=== PATIENT | female | born 1995 | race Caucasian/White ===

== ENCOUNTER 2017-01-28 08:09 | Inpatient (IN) | payer BC, OTHER ==
[~2017-01-28] VITALS: Ht 172.7 cm; Wt 74.8 kg
[2017-01-28 05:44] VITALS: BP 113/82
--- NOTE | 2017-01-28 11:50 | NUR ---
INTAKE ASSESSMENT Patient is 21yo female patient presented for admission for supervised withdrawal from opiates, meth and heroine. Vital signs: 109/68, HR 113, R 18, 02 sat 100% RA, pain 7/10 (body aches). Patient denies any SOB and chest pain. Patient reports current symptoms such as lightheadedness, headache, nausea (but no vomiting), diarrhea (last BM 01/28/17), backache (01/25), mild tremors noted. Patient denies history of seizure. She reports history of fall within the last 2-3 months. Explained to patient (i.e q4h vital, medication handling including narcotics, disposal of any contraband. Patient has home meds. Patient's history of treatment was at [facility] to [facility] in [place], [place] (11/17/16-12/14/16). Patient appears to be stable to proceed with her admission to [facility] for further care.
[2017-01-28] MEDS ORDERED: LOPERAMIDE HCL 2 MG CAPSULE PO PRN ×2 (12:00)
[2017-01-28] MEDS ORDERED: BUPRENORPHINE HCL 2 MG TAB.SUBL SL PRN (12:00)
[2017-01-28] MEDS ORDERED: ACETAMINOPHEN 325 MG TABLET PO PRN (12:00)
[2017-01-28] MEDS ORDERED: MAG HYDROX/AL HYDROX/SIMETH 30 ML LIQUID UDC PO PRN (12:00)
[2017-01-28] MEDS ORDERED: LORAZEPAM 2 MG/1 ML VIAL IM PRN (12:00)
[2017-01-28] MEDS ORDERED: ONDANSETRON ODT 4 MG TAB.RAPDIS SL PRN (12:00)
[2017-01-28] MEDS ORDERED: ONDANSETRON 4 MG/2 ML VIAL IM PRN (12:00)
[2017-01-28] MEDS ORDERED: MAGNESIUM HYDROXIDE 30 ML LIQUID UDC PO PRN (12:00)
[2017-01-28] MEDS ORDERED: LORAZEPAM 1 MG TABLET PO PRN ×2 (12:00)
[2017-01-28] MEDS ORDERED: DICYCLOMINE HCL 20 MG TABLET PO PRN (12:00)
[2017-01-28] MEDS ORDERED: diphenhydrAMINE 50 MG CAPSULE PO PRN (12:00)
[2017-01-28] MEDS ORDERED: MIRALAX 17 GM POWD.PACK PO PRN (12:00)
[2017-01-28 13:17] LABS: *AMPHETAMINE, URINE NEGATIVE (NEGATIVE); *BARBITURATE, URINE NEGATIVE (NEGATIVE); *CANNABINOID, URINE NEGATIVE (NEGATIVE); *COCCAINE, URINE NEGATIVE (NEGATIVE); *OPIATE, URINE NEGATIVE (NEGATIVE); *PHENCYCLIDINE SCREEN,URINE NEGATIVE (NEGATIVE)
[2017-01-28 13:52] LABS: *URINE HCG, QUAL NEGATIVE (NEGATIVE)
[2017-01-28] MEDS: IBUPROFEN 600 MG TABLET PO PRN ×2 (14:25→22:57)
[2017-01-28] MEDS: METHOCARBAMOL 750 MG TABLET PO PRN ×2 (14:25→22:57)
--- NOTE | 2017-01-28 14:25 | NUR ---
PRN METHOCARBAMOL, IBUPROFEN AND LOPERAMIDE Patient complains of body aches 8/10 and diarrhea. PRN methocarbamol, ibuprofen and loperamide given. Will continue to monitor patient.
--- NOTE | 2017-01-28 14:30 | NUR ---
ADMISSION NOTE Patient is 21yo female admitted for supervised heroin and alprazolam withdrawal. Alert and oriented X4, full code,with NKA. Patient reports pain 8/10 body aches. Denies SOB and chest pain, has R knee abrasion, photo taken. Patient has steady gait. Patient denies any medical history. No history of seizure. History of falls. Patient received PRN loperamide for diarrhea. Denies suicidal and homicidal ideation. COW on admission = 12, complains of , lightheadedness, back pain, mild tremors, and diarrhea. Substance use history per patient report: 1) Heroin - pt. reports last use was 01/24/17, used 1 g daily for 3 weeks, started 2 years ago 2) Xanax - pt. reports last use was 01/27/17, use d 20mg daily for past 2 weeks, started 5 years ago 3) Opiates - last use was 01/24/17, used 15 grams for 1.5 months, started at age 17 4) Meth - last use was 01/21/17, used 1/5g for 1 day, sporadic use, started 4 months ago. Rehab history: [facility] in [place], [place] Addendum: 01/29/17 at 1011 by CATRINA RAND RN Patient was in [facility] for 2 days two days [facility] to [facility]. MRSA swab performed.
[2017-01-28] MEDS: GABAPENTIN 300 MG CAPSULE PO SCH ×2 (15:17→20:45)
[2017-01-28] MEDS: LORAZEPAM 1 MG TABLET PO SCH ×3 (15:18→20:45)
[2017-01-28] MEDS: BUPRENORPHINE HCL 2 MG TAB.SUBL SL SCH ×3 (15:18→20:47)
--- NOTE | 2017-01-28 15:25 | NUR ---
REASSESSMENT METHOCARBAMOL, IBUPROFEN AND LOPERAMIDE Patient reports pain decreased to 5/10 and diarrhea resolved at this time.
[2017-01-28 15:57] LABS: BASOPHILS # (AUTO) 0.1 K/uL (0.0-8.0); BASOPHILS % (AUTO) 0.8 % (0.0-2.0); EOSINOPHILS # (AUTO) 0.2 K/uL (0.0-0.7); EOSINOPHILS % (AUTO) 1.5 % (0.0-7.0); HEMATOCRIT 43.8 % (37-47); HEMOGLOBIN 14.8 G/DL (12.0-16.0); LYMPHOCYTES # (AUTO) 4.5 K/UL (0.8-4.8); LYMPHOCYTES % (AUTO) 41.8 % (20.5-51.5); MEAN CORPUSCULAR HEMOGLOBIN 30.3 UUG (27.0-31.0); MEAN CORPUSCULAR HGB CONC 34 g/dL (32.0-37.0); MEAN CORPUSCULAR VOLUME 89.5 FL (81.0-99.0); MONOCYTES # (AUTO) 0.9 K/UL (0.1-1.30); MONOCYTES % (AUTO) 8.3 % (0.0-11.0); NEUTROPHILS % (AUTO) 47.6 % (38.5-71.5); PLATELET COUNT (AUTO) 288 K/UL (150-450); RED BLOOD CELL COUNT(AUTO) 4.89 MIL/UL (4.2-5.4); WHITE BLOOD COUNT (AUTO) 10.7 K/UL (4.0-11.2)
[2017-01-28 16:19] LABS: ETHANOL < 3 MG/DL (0-0)
[2017-01-28 16:25] LABS: ALANINE AMINOTRANSFERASE 19 U/L (14-59); ALKALINE PHOSPHATASE 54 U/L (50-136); ASPARTATE AMINOTRANSFERASE 15 U/L (15-37); BILIRUBIN,TOTAL 0.2 mg/dL (0.2-1.0); CARBON DIOXIDE 28 mmol/L (21-32); CHLORIDE 106 mmol/L (98-107); CREATININE 0.8 mg/dL (0.6-1.3); GLUCOSE 90 mg/dL (74-106); POTASSIUM 3.9 mmol/L (3.5-5.1); TOTAL PROTEIN, SERUM 7.6 g/dL (6.4-8.2); UREA NITROGEN, BLOOD 11 mg/dL (7-18)
[2017-01-28 16:50] LABS: THYROID STIMULATING HORMONE 0.209 mIU/mL (0.358-3.740)
--- NOTE | 2017-01-28 17:52 | NUR ---
MD communication Pt's mother called, stated "My daughter abuses her seroquel, she runs out of her prescription within a week of having it. She acts crazy and super tired, I think she is allergic to it". Dr English notified. NNO at this time. Pt is ok to continue to her HS dose seroquel.
--- NOTE | 2017-01-28 18:54 | NUR ---
END OF SHIFT Patient is 21yo female admitted for supervised heroin and alprazolam withdrawal. Alert and oriented X4, full code,with NKA. Patient reports pain 8/10 body aches. Denies SOB and chest pain, has R knee abrasion, photo taken. Patient has steady gait. Patient denies any medical history. No history of seizure. History of falls. Patient received PRN loperamide for diarrhea. Denies suicidal and homicidal ideation. COW on admission = 12. CIWA on admission: 12. Complains of , lightheadedness, back pain, mild tremors, and diarrhea. Patient started her 5-day Subutex and 5-day Ativan taper today. Most recent COWS: 8 and CIWA 10. Patient received PRN methocarbamol, ibuprofen and loperamide. Compliant with routine meds during this shift. Patient tolerating meals without n/v. director of adult epilepsyeducation technician will continue to monitor patient.
--- NOTE | 2017-01-28 20:00 | NUR ---
START OF SHIFT NOTE Pt is a 21 y/o female admitted for Heroin, Xanax, Hydrocodone, and Meth dependence and use. Pt has NKA but reported a PMH of birthmark biopsy and a fall 2 months ago. Per day shift nurse pt was placed on a 5 day Subutex and Ativan taper ( day 1) and is tolerating medication well, with no s/e or a/r reported. Pt received Ibuprofen 600 mg PO PRN and Robaxin 750 mg PO PRN during the day shift for back pain. Last COW: 8 and CIWA: 10 (1600). At this time pt is in her room watching television getting ready for a smoke break. Pt is friendly and cooperative. Pt's skin is dry and intact. No tremors present. PERRLA noted. Pt's breathing is even and unlabored. Pt reported "Later before I go to bed can I have more of what took earlier for my back? Im okay for now." Pt was encouraged to notify staff of any changes in condition or of any concerns. Pt verbalized an understanding. All safety measures in place. Will continue to monitor.
[2017-01-28] MEDS: QUETIAPINE FUMARATE 200 MG TABLET PO SCH (20:45)
--- NOTE | 2017-01-28 22:57 | NUR ---
ROBAXIN AND IBUPROFEN PRN ADMINISTRATION Pts stated My back is sore and aching. Its like a 12/26. "Can I have that Robaxin and Ibuprofen now?" Robaxin 750 mg PO PRN and Ibuprofen 600 mg PO PRN was given. Pt was encouraged to notify staff of any changes in condition or of any concerns. Pt verbalized an understanding. All safety measures in place. All safety measures in place. Will monitor for effectiveness.
--- NOTE | 2017-01-28 23:57 | NUR ---
ROBAXIN AND IBUPROFEN PRN REASSESSMENT Pt stated "My back feels better. The pain is like 3/10 right now, but its bearable." PRNS effective. All safety measures in place. Will continue to monitor.
--- NOTE | 2017-01-29 04:00 | NUR ---
VITAL SIGNS REFUSED / COW AND CIWA DEFERRED Pt refused to have vitals taken at this time. Pt was encouraged x 3 with risks and benefits explained, but the pt still declined. COW and CIWA assessment deferred until pt is awake. All safety measures in place. Will continue to monitor. Addendum: 01/29/17 at 0550 by JULIAN ORTEGA LVN Amended: Links added.
[2017-01-29 05:06] LABS: HEPATITIS B SURFACE AG Negative (Negative)
--- NOTE | 2017-01-29 06:14 | NUR ---
END OF SHIFT NOTE/HAND OFF NOTE Pt is a 21 y/o female admitted for Heroin, Xanax, Hydrocodone, and Meth dependence and use. Pt has NKA but reported a PMH of birthmark biopsy and a fall 2 months ago. Pt continues on a 5 day Subutex and Ativan taper ( day 2) and is tolerating medication well, with no s/e or a/r reported. Pt received Ibuprofen 600 mg PO PRN and Robaxin 750 mg PO PRN during the shift for back pain. Last COW: 2 and CIWA: 1 (0000). Pt slept for a total of 7 hours. No changes in condition. All safety measures in place. Endorsed to nurse C.F to ensure monitoring is continued.
[2017-01-29 08:00] VITALS: BP 115/80
[2017-01-29] MEDS: GABAPENTIN 300 MG CAPSULE PO SCH ×3 (08:32→20:44)
[2017-01-29] MEDS: IBUPROFEN 600 MG TABLET PO PRN ×2 (08:32→14:57)
[2017-01-29] MEDS: SERTRALINE HCL 50 MG TABLET PO SCH (08:32)
[2017-01-29] MEDS: METHOCARBAMOL 750 MG TABLET PO PRN ×2 (08:32→17:14)
[2017-01-29] MEDS: MULTIVITAMINS,THERAPEUTIC TABLET PO SCH (08:33)
[2017-01-29] MEDS: LORAZEPAM 1 MG TABLET PO SCH ×3 (08:33→20:44)
[2017-01-29] MEDS: BUPRENORPHINE HCL 2 MG TAB.SUBL SL SCH ×3 (08:33→20:46)
--- NOTE | 2017-01-29 09:00 | NUR ---
START OF SHIFT Patient is 21yo female admitted for supervised heroin and alprazolam withdrawal. Alert and oriented X4, full code,with NKA. On assessment this AM: CIWA: 5 and COWS: 4. Denies SOB, chest pain. Vitals signs: 115/80, HR 119, recheck 115, RR18, 98% 02 sat RA, T 98.1, 7/10 pain (recheck HR 115). Reports lightheadedness and feelings of band around her head, mild anxiety, mild tremors and backache. On day 2 of 5-day Subutex and 5-day Ativan taper (started 01/28/17 ). Med compliant with AM meds. PRN robaxin and ibuprofen given. Encouraged patient to hydrate with fluids. Patient was encouraged to attend group meetings today. Patient goes out with escort for smoke break. Will continue to monitor patient.
[2017-01-29] MEDS ORDERED: diphenhydrAMINE 50 MG CAPSULE PO PRN (10:30)
--- NOTE | 2017-01-29 11:51 | NUR ---
TB SKIN TEST REFUSAL Patient refused TB skin test, placed chest x-ray order per patient's request.
[2017-01-29 12:00] VITALS: BP 120/73
[2017-01-29] MEDS: HYDROXYZINE PAMOATE 25 MG CAPSULE PO PRN ×2 (12:59→22:59)
--- NOTE | 2017-01-29 12:59 | NUR ---
PRN TYLENOL AND VISTARIL Patient complains of headache 7/10 and anxiety. PRN Tylenol and vistaril given. Will continue to monitor patient.
--- NOTE | 2017-01-29 13:59 | NUR ---
DEFER REASSESSMENT (TYLENOL AND VISTARIL) Patient just escorted out to patio for smoke break. Will re-evaluate patient when she returns to her room.
[2017-01-29] MEDS ORDERED: TUBERCULIN,PURIF.PROT.DERIV. 5 TU/0.1 ML TEST ID ONE (14:07)
--- NOTE | 2017-01-29 14:45 | NUR ---
REASSESSMENT (TYLENOL AND VISTARIL) Patient reports pain (headache) is still the same. Will offer ibuprofen. Patient reports decreased anxiety.
--- NOTE | 2017-01-29 14:47 | NUR ---
PRN IBUPROFEN Patient complains of headache 02/25, PRN ibuprofen given. Will continue to monitor patient.
--- NOTE | 2017-01-29 14:49 | NUR ---
PRN ONDANSETRON ODT Patient vomited during smoke break. PRN ondansetron ODT given. Will continue to monitor patient.
--- NOTE | 2017-01-29 15:07 | NUR ---
MD communication Pt had ECG done for DDI, noted to have sinus tachycardia. Dr Crane notified. NNO.
--- NOTE | 2017-01-29 15:47 | NUR ---
DEFER REASSESSMENT (IBUPROFEN) Patient is currently attending group session. Will re-evaluate patient after group session is finished.
--- NOTE | 2017-01-29 15:49 | NUR ---
DEFER REASSESSMENT (ONDASETRON ODT) Patient is in group session at this time. Will re-evaluate patient when group session is finished.
[2017-01-29 16:00] VITALS: BP 146/79
--- NOTE | 2017-01-29 16:30 | NUR ---
REASSESSMENT ONDASETRON ODT AND IBUPROFEN Patient reports headache and nausea/vomiting resolved.
--- NOTE | 2017-01-29 17:14 | NUR ---
PRN ROBAXIN Patient complains of back pain 8/, PRN robaxin given. Will continue to monitor patient.
--- NOTE | 2017-01-29 18:14 | NUR ---
DEFER REASSESSMENT (PRN ROBAXIN) Patient noted asleep with eyes closed, breathing comfortably.
--- NOTE | 2017-01-29 18:57 | NUR ---
END OF SHIFT Patient is 21yo female admitted for supervised heroin and alprazolam withdrawal. Alert and oriented X4, full code,with NKA. Patient reports pain 8/10 body aches. Denies SOB and chest pain, has R knee abrasion. Patient has steady gait. No history of seizure. Has history of falls. On day 2 of 5-day Subutex and 5-day Ativan taper (started 01/28/17 ). Complained of vomiting X1 while at the patio after lunch time and headache. PRN ondansetron ODT and ibuprofen given, effective per pt. report. Most recent COWS: 5 and CIWA 5. Complains of back pain, mild tremors, and diarrhea. Patient received PRN Robaxin, ibuprofen, Tylenol and Vistaril during this shift. Compliant with routine meds during this shift. greenhouse instructorpolice shift commander will continue to monitor patient.
--- NOTE | 2017-01-29 19:00 | NUR ---
REASSESSMENT (PRN ROBAXIN) Patient reports robaxin was mildly effective.
--- NOTE | 2017-01-29 19:56 | NUR ---
START OF SHIFT NOTE Pt is a 21 y/o female admitted for Heroin, Xanax, Hydrocodone, and Meth dependence and use. Pt has NKA but reported a PMH of birthmark biopsy and a fall 2 months ago. Per day shift nurse continues on a 5 day Subutex and Ativan taper ( day 2) and is tolerating medication well, with no s/e or a/r reported. Pt received Ibuprofen 600 mg PO PRN , Tylenol 650 mg PO PRN, Zofran 4 mg ODT PRN, and Robaxin 750 mg PO PRN during the day shift. Last COW: 5 and CIWA: 5 (1600). At this time pt has approached the nurse's station requesting a smoking pass. Pt appears calm, but was noted having fine tremors. Skin is dry and intact and breathing is even and unlabored. Pt denies any pain/discomfort at this time. Pt was encouraged to notify staff of any changes in condition or of any concerns. Pt verbalized an understanding. Will continue to monitor.
[2017-01-29 20:00] VITALS: BP 124/86
[2017-01-29] MEDS: QUETIAPINE FUMARATE 200 MG TABLET PO SCH (20:45)
--- NOTE | 2017-01-29 22:59 | NUR ---
VISTARIL PRN ADMINISTRATION Pt stated " I'm feeling anxious again. Can I have some Vistaril ?" Vistaril 25 mg PO PRN was given. Pt was encouraged to notify staff of any changes in condition or of any concerns. Pt verbalized an understanding. Will monitor for effectiveness.
--- NOTE | 2017-01-29 23:40 | NUR ---
VISTARIL PRN REASSESSMENT Pt approached the nurse's station stating " Just wanted to let you know I feel better. I'm headed to bed." PRN effective. Will continue to monitor.
--- NOTE | 2017-01-30 | NUR ---
VITALS REFUSED/ COW AND CIWA ASSESSMENT DEFERRED Pt refused to have vitals taken at this time. Pt was encouraged x 3 with risks and benefits explained, but the pt still declined. At this time pt is asleep in bed with with no signs of discomfort/dsitress noted. COW and CIWA assessment deferred until pt is awake. All safety measures in place. Will continue to monitor. Addendum: 01/30/17 at 0205 by JULIAN ORTEGA LVN Amended: Links added.
[2017-01-30] MEDS: IBUPROFEN 600 MG TABLET PO PRN ×3 (03:59→17:23)
--- NOTE | 2017-01-30 03:59 | NUR ---
MOTRIN PRN ADMINISTRATION Pt reported having a headache 01/25. Motrin 600 mg PO PRN was given. All safety measures in place. Will monitor for effectiveness.
[2017-01-30 04:00] VITALS: BP 100/60
--- NOTE | 2017-01-30 04:59 | NUR ---
MOTRIN PRN REASSESSMENT Pt stated " My headache went away." PRN effective. All safety measures in place. Will continue to monitor.
--- NOTE | 2017-01-30 06:51 | NUR ---
END OF SHIFT NOTE Pt is a 21 y/o female admitted for Heroin, Xanax, Hydrocodone, and Meth dependence and use. Pt has NKA but reported a PMH of birthmark biopsy and a fall 2 months ago. Pt continues on a 5 day Subutex and Ativan taper ( day 3) and is tolerating medication well, with no s/e or a/r reported. Pt received Ibuprofen 600 mg PO PRN and Vistaril 25 mg PO PRN during the shift. Last COW: 4 and CIWA: 5 (0400). Pt slept for a total of 7 hours. No changes in condition. All safety measures in place. Will endorse to the oncoming nurse.
--- NOTE | 2017-01-30 07:05 | NUR ---
Start of Shift Endorsement received from nightshift nurse. Pt is a 21 y/o female admitted for Heroin, Xanax and meth dependence. Pt has been placed on a 5 day Subutex and 5 day Ativan taper. Pt is moderately withdrawing at this time AEB COWS 4, CIWA 5 at 0400. Pt reports sleeping 7 hours. Pt received PRN Motrin and Vistaril. Reports Hx of a backpain and headaches. VS WNL. Full Code. Pt is in STABLE condition at this time. Remains compliant with medication and diet regimen. All needs have been met, All safety measures in place per hospital policy. Bed in lowest position, side rails up x2, call-light within reach. Will continue to monitor
[2017-01-30 08:00] VITALS: BP 113/76
[2017-01-30] MEDS: SERTRALINE HCL 50 MG TABLET PO SCH (08:29)
[2017-01-30] MEDS: MULTIVITAMINS,THERAPEUTIC TABLET PO SCH (08:29)
[2017-01-30] MEDS: METHOCARBAMOL 750 MG TABLET PO PRN ×2 (08:29→17:23)
[2017-01-30] MEDS: LORAZEPAM 1 MG TABLET PO SCH ×4 (08:29→20:28)
[2017-01-30] MEDS: GABAPENTIN 300 MG CAPSULE PO SCH ×3 (08:29→20:28)
--- NOTE | 2017-01-30 08:29 | NUR ---
PRN Medications PT reports 6/10 back pain and spasms and 7/10 headache. Administered PRN Robaxin and Motrin
[2017-01-30] MEDS ORDERED: BUPRENORPHINE HCL 2 MG TAB.SUBL SL SCH ×2 (09:00)
--- NOTE | 2017-01-30 09:00 | NUR ---
Medication Re-assessment Pt reports 3/10 back pain and 2/10 headache. Medications were partially effective.
--- NOTE | 2017-01-30 10:12 | NUR ---
Therapist prompted client about group times. Client stated she will attend all groups today.
[2017-01-30 12:00] VITALS: BP 130/95
[2017-01-30] MEDS: CLONIDINE HCL 0.1 MG TABLET PO PRN ×2 (12:48→20:33)
[2017-01-30] MEDS: HYDROXYZINE PAMOATE 25 MG CAPSULE PO PRN (12:48)
--- NOTE | 2017-01-30 12:48 | NUR ---
PRN Medication Administered PRN Clonidine and Vistaril for reported anxiety and chills. will re-assess.
--- NOTE | 2017-01-30 13:20 | NUR ---
Medication Re-assessment Pt reports relief from anxiety and chills. rates anxiety 2/10 from 12/26. medications were effective.
[2017-01-30] MEDS: LIDOCAINE 5% PATCH TD SCH (13:48)
[2017-01-30] MEDS: BUPRENORPHINE HCL 2 MG TAB.SUBL SL SCH ×2 (15:36→20:27)
[2017-01-30 16:00] VITALS: BP 123/95
--- NOTE | 2017-01-30 17:23 | NUR ---
PRN Medications Administered PRN Motrin and Robaxin for 7/10 back pain and 6/10 headache.
--- NOTE | 2017-01-30 17:50 | NUR ---
Medication Re-assessment Pt reports 2/10 backpain and 1/10 headache. Medications were effective.
--- NOTE | 2017-01-30 18:47 | NUR ---
End of Shift Endorsement given to nightshift nurse. Pt is a 21 y/o female admitted for Heroin, Xanax and meth dependence. Pt has been placed on a 5 day Subutex and 5 day Ativan taper. Pt is moderately withdrawing at this time AEB COWS 7, CIWA 7 at 1600. Pt participated in groups and activities. Educated pt on medication and diet regimen. Encouraged pt to drink more water. Pt received PRN Robaxin x2, Vistaril, Motrin x2 and Clonidine. Intake: 1700ml, Void x5, BM x0. Reports Hx of a back pain and headaches. VS WNL. Full Code. Pt is in STABLE condition at this time. Remains compliant with medication and diet regimen. All needs have been met, All safety measures in place per hospital policy. Bed in lowest position, side rails up x2, call-light within reach. Will continue to monitor
[2017-01-30 20:00] VITALS: BP 124/83
--- NOTE | 2017-01-30 20:00 | NUR ---
START OF SHIFT NOTE Pt is a 21 y/o female admitted for Heroin, Xanax, Hydrocodone, and Meth dependence and use. Pt has NKA but reported a PMH of birthmark biopsy and a fall 2 months ago. Per day shift nurse continues on a 5 day Subutex and Ativan taper ( day 3) and is tolerating medication well, with no s/e or a/r reported. Pt received Ibuprofen 600 mg PO PRN x 2, Clonidine 0.1 mg PO PRN, Vistaril 25 mg PO PRN, and Robaxin 750 mg PO PRN x2 during the day shift. Last COW: 7 and CIWA: 7 (1600). At this time pt in her room. Pt's skin is dry and intact and breathing is even and unlabored. No tremors noted at this time. Pt denies any pain/discomfort. Pt was encouraged to notify staff of any changes in condition or of any concerns. Pt verbalized an understanding. Will continue to monitor.
[2017-01-30] MEDS: QUETIAPINE FUMARATE 200 MG TABLET PO SCH (20:27)
--- NOTE | 2017-01-31 | NUR ---
VITALS REFUSED/ COW AND CIWA DEFERRED Vitals refused. Pt was encouraged x 3 with risks and benefits explained, but the pt still refused. CIWA and COW assessment deferred until pt is awake. All safety measures in place. Will continue to monitor. Addendum: 01/31/17 at 0719 by JULIAN ORTEGA LVN Amended: Links added.
--- NOTE | 2017-01-31 04:00 | NUR ---
VITALS REFUSED / COW AND CIWA DEFERRED Vitals refused. Pt was encouraged x 3 with risks and benefits explained, but the pt still refused. CIWA and COW assessment deferred until pt is awake. All safety measures in place. Will continue to monitor. Addendum: 01/31/17 at 0721 by JULIAN ORTEGA LVN Amended: Links added.
--- NOTE | 2017-01-31 07:10 | NUR ---
Start of Shift Endorsement received from nightshift nurse. Pt is a 21 y/o female admitted for Heroin, Xanax and meth dependence. Pt has been placed on a 5 day Subutex and 5 day Ativan taper. Pt is moderately withdrawing at this time AEB COWS 4, CIWA 5 at 0400. Pt reports sleeping 7 hours. Pt received PRN Clonidine during night time babysitter. Reports Hx of a back pain and headaches. VS WNL. Full Code. Pt is alert and oriented x4. Pt is in STABLE condition at this time. Remains compliant with medication and diet regimen. All needs have been met, All safety measures in place per hospital policy. Bed in lowest position, side rails up x2, call-light within reach. Will continue to monitor
--- NOTE | 2017-01-31 07:21 | NUR ---
END OF SHIFT NOTE Pt is a 21 y/o female admitted for Heroin, Xanax, Hydrocodone, and Meth dependence and use. Pt has NKA but reported a PMH of birthmark biopsy and a fall 2 months ago. Pt continues on a 5 day Subutex and Ativan taper ( day 4) and is tolerating medication well, with no s/e or a/r reported. Pt received Clonidine 0.1 mg PO PRN during the shift. Last COW: 5 and CIWA: 2 (1999). Pt slept for a total of 7 hours. No changes in condition. All safety measures in place. Will endorse to the oncoming nurse.
[2017-01-31 08:00] VITALS: BP 111/77
[2017-01-31] MEDS: IBUPROFEN 600 MG TABLET PO PRN ×2 (08:57→22:15)
[2017-01-31] MEDS: METHOCARBAMOL 750 MG TABLET PO PRN (08:57)
[2017-01-31] MEDS: GABAPENTIN 300 MG CAPSULE PO SCH ×3 (08:57→21:21)
[2017-01-31] MEDS: MULTIVITAMINS,THERAPEUTIC TABLET PO SCH (08:57)
[2017-01-31] MEDS: LORAZEPAM 1 MG TABLET PO SCH ×3 (08:57→21:21)
[2017-01-31] MEDS: SERTRALINE HCL 50 MG TABLET PO SCH (08:57)
[2017-01-31] MEDS: BUPRENORPHINE HCL 2 MG TAB.SUBL SL SCH ×3 (08:58→21:21)
[2017-01-31] MEDS: LIDOCAINE 5% PATCH TD SCH (08:58)
[2017-01-31 12:00] VITALS: BP 120/87
[2017-01-31] MEDS: CLONIDINE HCL 0.1 MG TABLET PO PRN (12:34)
--- NOTE | 2017-01-31 12:34 | NUR ---
PRN Medications Administered PRN Clonidine for chills and moderate anxiety.
--- NOTE | 2017-01-31 13:00 | NUR ---
Medication re-assessment Pt reports relief from chills and anxiety. medication was effective.
[2017-01-31] MEDS ORDERED: KETOROLAC TROMETHAMINE 30 MG INJ IM PRN (14:00)
--- NOTE | 2017-01-31 14:56 | NUR ---
PRN Medication Administered PRN Toradol for 8/10 back pain reported by the pt.
--- NOTE | 2017-01-31 15:15 | NUR ---
Medication Re-assessment PT reports 3/10 pain at this time. Medication was effective.
[2017-01-31 16:00] VITALS: BP 126/86
--- NOTE | 2017-01-31 19:07 | NUR ---
End of Shift Endorsement given to nightshift nurse. Pt is a 21 y/o female admitted for Heroin, Xanax and meth dependence. Pt has been placed on a 5 day Subutex and 5 day Ativan taper. Pt is mildly withdrawing at this time AEB COWS 4, CIWA 3 at 1600. Pt participated in groups and activities. Reinforced education on medication and diet regimen. Encouraged pt to drink more water. Pt received PRN Robaxin, Motrin, Clonidine and Toradol. Intake: 1200ml, Void x3, BM x1. Reports Hx of a back pain and headaches. VS WNL. Full Code. Pt is in STABLE condition at this time. Remains compliant with medication and diet regimen. All needs have been met, All safety measures in place per hospital policy. Bed in lowest position, side rails up x2, call-light within reach. Will continue to monitor
--- NOTE | 2017-01-31 19:20 | NUR ---
Start of Shift Patient Received. Patient is in activities room participating in group meeting. Patient is a 21 year old female, admitted on 01/28/17 for Opiate and Benzo Dependence under the care of Dr. Crane. Patient verbalizes No known allergies, wishes to be full code, following a regular diet, placed on fall precautions. Skin noted with Right knee abrasion. Per endorsement, patient was given PRN Robaxin, Motrin, and Toradol Injection with medications noted to be effective. All needs attended to promptly. Will continue to monitor.
[2017-01-31 20:20] VITALS: BP 122/84
[2017-01-31] MEDS: QUETIAPINE FUMARATE 200 MG TABLET PO SCH (21:21)
--- NOTE | 2017-01-31 21:21 | NUR ---
PRN Medication Administration Patient verbalizing increased lower back spasms. PRN Robaxin administered as per order. Will continue to monitor.
--- NOTE | 2017-01-31 22:20 | NUR ---
PRN Medication Reassessment/ PRN Medication Administration Patient able to verbalize PRN Robaxin was effective in minimizing lower back spasms. Patient is verbalizing pain of 5/10 due to headache. All non pharmacological interventions noted to be ineffective. PRN Motrin administered as per order. Will continue to monitor.
--- NOTE | 2017-01-31 23:20 | NUR ---
PRN Medication Reassessment Patient noted in bed watching TV. Patient is able to verbalize PRN Motrin was effective in minimizing pain. Will continue to monitor.
[2017-02-01 00:15] VITALS: BP 116/54
[2017-02-01 04:54] VITALS: BP 114/64
--- NOTE | 2017-02-01 06:53 | NUR ---
End of Shift Patient is in bed sleeping. Breathing even and non labored. No signs of pain or discomfort noted. Patient is a 21 year old female admitted on 01/28/17 for Opiate and Benzo Dependence. Patient is currently receiving a 5 day Ativan taper and 5 day Subutex taper. Patient receiving PRN Robaxin and PRN Motrin with medications noted to be effective. All needs attended to promptly. Will endorse to continue plan of care as ordered.
--- NOTE | 2017-02-01 07:05 | NUR ---
Start of Shift Endorsement received from nightshift nurse. Pt is a 21 y/o female admitted for Heroin, Xanax and meth dependence. Pt has been placed on a 5 day Subutex and 5 day Ativan taper. Pt is mildly withdrawing at this time AEB COWS 3, CIWA 3 at 0400. Pt reports sleeping 8 hours. Pt received PRN Robaxin and Motrin during night shift manager. Reports Hx of a back pain and headaches. VS WNL. Full Code. Pt is alert and oriented x4. Pt is in STABLE condition at this time. Remains compliant with medication and diet regimen. All needs have been met, All safety measures in place per hospital policy. Bed in lowest position, side rails up x2, call-light within reach. Will continue to monitor
[2017-02-01 08:00] VITALS: BP 119/84
[2017-02-01] MEDS: MULTIVITAMINS,THERAPEUTIC TABLET PO SCH (08:16)
[2017-02-01] MEDS: LORAZEPAM 1 MG TABLET PO SCH ×2 (08:16→21:33)
[2017-02-01] MEDS: GABAPENTIN 300 MG CAPSULE PO SCH ×3 (08:16→21:33)
[2017-02-01] MEDS: SERTRALINE HCL 50 MG TABLET PO SCH (08:16)
[2017-02-01] MEDS: BUPRENORPHINE HCL 2 MG TAB.SUBL SL SCH ×2 (08:17→22:52)
[2017-02-01] MEDS: LIDOCAINE 5% PATCH TD SCH (08:18)
[2017-02-01 12:00] VITALS: BP 126/92
[2017-02-01] MEDS ORDERED: SUMATRIPTAN SUCCINATE 50 MG TABLET PO PRN (12:45)
[2017-02-01 16:00] VITALS: BP 128/85
[2017-02-01] MEDS ORDERED: BUPRENORPHINE HCL 2 MG TAB.SUBL SL ONE (18:30)
[2017-02-01] MEDS ORDERED: LORAZEPAM 1 MG TABLET PO ONE (18:30)
--- NOTE | 2017-02-01 18:49 | NUR ---
End of Shift Endorsement given to nightshift nurse. Pt is a 21 y/o female admitted for Heroin, Xanax and meth dependence. Pt has been placed on a 5 day Subutex and 5 day Ativan taper. Pt is moderately withdrawing at this time AEB COWS 4, CIWA 4 at 1600. Pt participated in groups and activities. Encouraged pt to express her emotions and feelings. PT reports a panic attack, administered Subutex 4mg and Ativan 2mg per Dr. Crane. . Intake: 1500ml, Void x2, BM x1. Reports Hx of a back pain and headaches. VS WNL. Full Code. Pt is in STABLE condition at this time. Remains compliant with medication and diet regimen. All needs have been met, All safety measures in place per hospital policy. Bed in lowest position, side rails up x2, call-light within reach. Will continue to monitor
--- NOTE | 2017-02-01 19:08 | NUR ---
Start of shift note Received report from day shift nurse. Pt is a 21 yo female, A+Ox4, presenting to [facility] for Benzo/Opiate/Methamphetamine dependence. Pt has NKA, is on Full Code status, and on Regular diet. Pt has HX of Birthmark removal, and fall. Pt is on Fall precautions. Pt is on 5 day Ativan and 5 day Subutex tapers, tolerated well. No s/s of distress noted at this time. Respirations even and unlabored. Will continue to monitor.
[2017-02-01 20:11] VITALS: BP 130/94
[2017-02-01] MEDS: QUETIAPINE FUMARATE 200 MG TABLET PO SCH (21:33)
[2017-02-02 00:10] VITALS: BP 120/73
[2017-02-02 04:15] VITALS: BP 117/71
--- NOTE | 2017-02-02 07:03 | NUR ---
End of shift note Pt is a 21 yo female, A+Ox4, presenting to [facility] for Benzo/Opiate/Methamphetamine dependence. Pt has NKA, is on Full Code status, and on Regular diet. Pt has HX of Birthmark removal, and fall. Pt is on Fall precautions. Pt is on 5 day Ativan and 5 day Subutex tapers, tolerated well. Pt slept for a total of 6 HRS. Last COWS: 1 and Last CIWA: 2 @0400. No s/s of distress noted at this time. Respirations even and unlabored. Will endorse to day shift nurse.
[2017-02-02 08:01] VITALS: BP 114/74
--- NOTE | 2017-02-02 08:15 | NUR ---
START OF SHIFT: RECEIVED PT A/O X 4. SHE C/O ANXIETY AND LOWER BACK PAIN 5/10 AND GENERALIZED MUSCLE ACHES. SUBUTEX TAPER IN PROGRESS. COWS 4. CIWA 1. ATIVAN TAPER COMPLETED. PRN MOTRIN AND ROBAXIN GIVEN AND LIDOCAINE PATCHES ORDERED.SHE STATES SHE SLEPT WELL. SHE PRESENTS WITH BLUNTED AFFECT AND DEPRESSED MOOD. SHE DENIES S/I AND H/I. ENCOURAGED GROUP ATTENDANCE TO IMPROVE COPING SKILLS AND PREVENT RELAPSE.
[2017-02-02] MEDS: SERTRALINE HCL 50 MG TABLET PO SCH (08:32)
[2017-02-02] MEDS: METHOCARBAMOL 750 MG TABLET PO PRN (08:34)
[2017-02-02] MEDS: IBUPROFEN 600 MG TABLET PO PRN (08:34)
[2017-02-02] MEDS: GABAPENTIN 300 MG CAPSULE PO SCH ×3 (08:34→21:01)
[2017-02-02] MEDS: LIDOCAINE 5% PATCH TD SCH (08:34)
[2017-02-02] MEDS: MULTIVITAMINS,THERAPEUTIC TABLET PO SCH (08:34)
[2017-02-02] MEDS ORDERED: BUPRENORPHINE HCL 2 MG TAB.SUBL SL SCH (09:00)
[2017-02-02 12:00] VITALS: BP 135/90
[2017-02-02] MEDS ORDERED: BACLOFEN 10 MG TABLET PO ONE (12:00)
[2017-02-02] MEDS ORDERED: HYDR-3895 PO (12:38)
[2017-02-02] MEDS ORDERED: SERT50TA12 PO (12:38)
[2017-02-02] MEDS ORDERED: DICY20TA28 PO (12:38)
[2017-02-02] MEDS ORDERED: CLON0.1T14 PO (12:38)
[2017-02-02] MEDS ORDERED: BACL20TA PO (12:38)
[2017-02-02] MEDS ORDERED: QUET200T PO (12:38)
[2017-02-02] MEDS ORDERED: SUMA50TA PO (12:38)
[2017-02-02] MEDS ORDERED: IBUP-1955 PO (12:38)
[2017-02-02] MEDS ORDERED: DIPH50CA37 PO (12:38)
[2017-02-02] MEDS ORDERED: GABA-534 PO (12:38)
[2017-02-02] MEDS: BACLOFEN 20 MG TABLET PO SCH ×2 (14:27→21:01)
[2017-02-02] MEDS: CLONIDINE HCL 0.1 MG TABLET PO PRN (14:28)
--- NOTE | 2017-02-02 14:35 | NUR ---
PRN CLONIDINE GIVEN FOR REPORTED CHILLS,ANXIETY AND SWEATS.
--- NOTE | 2017-02-02 15:35 | NUR ---
PRN CLONIDINE EFFECTIVE. PT STATES SHE FEELS BETTER.
[2017-02-02 16:00] VITALS: BP 119/73
[2017-02-02 18:41] LABS: *AMPHETAMINE, URINE NEGATIVE (NEGATIVE); *BARBITURATE, URINE NEGATIVE (NEGATIVE); *CANNABINOID, URINE NEGATIVE (NEGATIVE); *COCCAINE, URINE NEGATIVE (NEGATIVE); *OPIATE, URINE NEGATIVE (NEGATIVE); *PHENCYCLIDINE SCREEN,URINE NEGATIVE (NEGATIVE)
--- NOTE | 2017-02-02 18:59 | NUR ---
END OF SHIFT: PT C/O BODY ACHES, ANXIETY AND RESTLESSNESS EARLY IN SHIFT. ROBAXIN AND MOTRIN GIVEN. SHE STATES IT WAS ONLY MILDLY EFFECTIVE. NEW ORDER FOR BACLOFEN GIVEN AND EFFECTIVE. SUBUTEX AND ATIVAN TAPER COMPLETED. LAST COWS 4 CIWA 2 PT IS SCHEDULED FOR DISCHARGE TOMORROW. UDS COLLECTED. PT STATES SHE IS MOTIVATED TOWARD RECOVERY. WILL PASS SHIFT REPORT TO ONCOMING NIGHT NURSE.
--- NOTE | 2017-02-02 19:30 | NUR ---
START OF SHIFT Pt is a 21 yo female, A+Ox4, admitted to [facility] for Benzo/Opiate/Methamphetamine dependence. Pt has NKA, is on Full Code status, and on Regular diet. Pt has HX of Birthmark removal, and fall. Pt is on Fall precautions. Pt was on 5 day Ativan and 5 day Subutex tapers, tolerated well and completed;Pt is scheduled for DC in the morning.Last COWS=4,CIWA=2. No s/s of distress noted at this time. Respirations even and unlabored. All safety measures in place. Will continue to monitor.
[2017-02-02 20:00] VITALS: BP 123/89
[2017-02-02] MEDS: QUETIAPINE FUMARATE 200 MG TABLET PO SCH (21:01)
--- NOTE | 2017-02-03 | NUR ---
VITALS REFUSED/ COW AND CIWA DEFERRED Vitals refused.Pt is fast asleep,breathing is even and non labored,no s/s of distress noted. CIWA and COWS assessment deferred. All safety measures in place. Will continue to monitor.
--- NOTE | 2017-02-03 04:00 | NUR ---
VITALS REFUSED/ COW AND CIWA DEFERRED Pt remains fast asleep,breathing is even and non labored,no s/s of distress noted. CIWA and COWS assessment deferred. All safety measures in place. Will continue to monitor.
--- NOTE | 2017-02-03 06:39 | NUR ---
END OF SHIFT Pt is a 21 yo female, A+Ox4, admitted to [facility] for Benzo/Opiate/Methamphetamine dependence. Pt has NKA, is on Full Code status, and on Regular diet. Pt has HX of Birthmark removal, and fall. Pt is on Fall precautions. Pt was on 5 day Ativan and 5 day Subutex tapers, tolerated well and completed;Pt is scheduled for DC in the morning.Last COWS=4,CIWA=2. No s/s of distress noted .No PRN meds given,Pt slept 8 hrs,fluid intake was 1500 mls,voided x 4,BMx 1. Respirations even and unlabored. All safety measures in place. Will continue to monitor.
--- NOTE | 2017-02-03 07:34 | NUR ---
START OF SHIFT Received report from night nurse. 21 year old female admitted for Heroin, xanax, hydrocodone, and methamphetamine withdrawals. Pt has completed 5 day Subutex and 5 day Ativan taper and is medically cleared for discharge. No acute s/s of withdrawals noted at night. Pt did not request or need any PRN medications. V/S remain WNL, pt slept for 8 hours. Most recent COWS are 4 and CIWA 2. Pt verbalizes feelings, ambulates with dteady gait and attends group activities. All needs met at this time, will continue to monitor.
[2017-02-03 08:08] VITALS: BP 120/79
[2017-02-03] MEDS: BACLOFEN 20 MG TABLET PO SCH (08:40)
[2017-02-03] MEDS: GABAPENTIN 300 MG CAPSULE PO SCH (08:40)
[2017-02-03] MEDS: SERTRALINE HCL 50 MG TABLET PO SCH (08:41)
[2017-02-03] MEDS: LIDOCAINE 5% PATCH TD SCH (08:41)
[2017-02-03] MEDS: MULTIVITAMINS,THERAPEUTIC TABLET PO SCH (08:41)
--- NOTE | 2017-02-03 09:35 | NUR ---
D/C NOTE Pt is A/O x4. V/S remain WNL. Pt denies SI/HI or hallucinations. Pt shows no s/s of acute withdrawal at this time, and is stable. has medically cleared pt for d/c. Education on Hepatitis C, smoking cessation and medication side effects provided. Pt verbalizes understanding. All pt belongings are in belonging bag, including prescriptions, pt did not have any home medications. Refuses PNU vaccination. Pt is being accompanied by COMPUTER GAME PROGRAMMER at this time to be transported to rehab. All needs met.
== END 2017-02-03 09:35 | disposition other institution (70) | DRG 895 ==
LOC: SRC 11:32
PROVIDERS: ADMIT Internal Medicine; ATTEND Internal Medicine
PROC: HZ41ZZZ Group Counseling for Substance Abuse Treatment, Behavioral (ICD-10-PCS; principal; 2017-01-28)
PROC: HZ2ZZZZ Detoxification Services for Substance Abuse Treatment (ICD-10-PCS; principal; 2017-01-28)
PROC: HZ31ZZZ Individual Counseling for Substance Abuse Treatment, Behavioral (ICD-10-PCS; 2017-01-30)
DX: F11.23 Opioid dependence with withdrawal (principal); F13.230 Sedative, hypnotic or anxiolytic dependence with withdrawal, uncomplicated; F15.10 Other stimulant abuse, uncomplicated; F17.210 Nicotine dependence, cigarettes, uncomplicated; F41.9 Anxiety disorder, unspecified; G47.00 Insomnia, unspecified; F32.9 Major depressive disorder, single episode, unspecified; G43.909 Migraine, unspecified, not intractable, without status migrainosus; E07.81 Sick-euthyroid syndrome; Z81.8 Family history of other mental and behavioral disorders; Z81.3 Family history of other psychoactive substance abuse and dependence; Z83.79 Family history of other diseases of the digestive system; Z80.9 Family history of malignant neoplasm, unspecified; I10 Essential (primary) hypertension
CPT/HCPCS: 36415; 70030-TC; 80307; 80346; 83735; 84443; 84703; 85025; 86592; 86705; 86803; 87340; 87806; 93005; A4663; G0480; J1885; Q0162